=== PATIENT | female | born 1970 ===

== ENCOUNTER → 2018-06-03 13:21 | Outpatient (REF) | payer OTHER, SELFPAY | LOC: LAB 13:21 | PROVIDERS: Visit Provider Physician Assistant | DX: L01.01 Non-bullous impetigo (principal); T81.89XA Other complications of procedures, not elsewhere classified, initial encounter; D48.5 Neoplasm of uncertain behavior of skin | CPT/HCPCS: 87070; 87075; 87077; 87147; 87186; 87205 ==